=== PATIENT | male | born 1975 | race Caucasian/White ===

== ENCOUNTER 2018-06-13 09:46 | Inpatient (IN) | payer BC ==
[~2018-06-13] VITALS: Ht 193 cm; Wt 100.3 kg
--- NOTE | ~2018-06-13 | EKG ---
[place], [place] ELECTROCARDIOGRAM REPORT NAME: BEL FERREIRA UNIT #: [id number] ROOM: 403 DOCTOR: CRISTOFER DRAFT REPORT BIRTHDATE: [birth year] [facility] Test Date: 2018-06-14 Test Time: 10:01:02 Pat Name: BEL FERREIRA Department: Room: 403 Gender: M Assistant Production Manager: : [id number] Requested By: JOSH EDMOND Order Number: [id number] Reading MD: Jae Roy MD Measurements Intervals [place] Rate: 77 P: 20 WV: 146 QRS: 58 QRSD: 89 T: 28 QT: 363 QTc: 411 Interpretive Statements Sinus rhythm Poor precordial R-wave progression Cannot rule out anteroseptal infarct, old Baseline wander in lead(s) I,II,aVR Electronically Signed On 06-14-2018 21:37:39 PDT by Jae Roy MD CM:EKGRPT:ELECTROCARDIOGRAM REPORT 1001 JOSH CERVANTES DRAFT REPORT JOSH EDMOND DO
[~2018-06-13 09:46] MED LIST: HYDROCODONE BIT1 T11 PO; TOBRADEX 0.1%-0.5 ML OPH
[2018-06-13 10:03] LABS: BASO % 0.4 % (0.0-1.0); EOS # 0.2 10*3/uL (0.0-0.4); EOS % 2.4 % (1.0-4.0); HEMATOCRIT 45.4 % (42.0-52.0); HEMOGLOBIN 15.9 g/dl (14.0-18.0); LYMPH # 2.1 10*3/uL (1.3-4.4); LYMPH % 22.2 % (27.0-41.0); MEAN CORPUSCULAR HGB 31.2 pg (27.0-31.0); MEAN PLATELET VOLUME 10.3 fl (9.6-12.3); MONO # 0.8 10*3/uL (0.1-1.0); MONO % 8.2 % (3.0-9.0); NEUT # 6.1 10*3/uL (2.3-7.9); NEUT % 66.5 % (47.0-73.0); PLATELET COUNT AUTOMATED 176 10*3/uL (130-400); RED CELL DISTRI WIDTH 13.2 % (0-14.5); WHITE BLOOD COUNT 9.2 10*3/uL (4.8-10.8)
[2018-06-13 10:17] LABS: ALKALINE PHOSPHATASE 86 U/L (45-117); BUN 18 mg/dl (7-24); CHLORIDE 105 mmol/L (98-107); CREATININE 0.96 mg/dL (0.70-1.30); LIPASE 104 U/L (73-393); POTASSIUM 4.3 mmol/L (3.5-5.1); SGOT/AST 36 IU/L (3-35); SGPT/ALT 88 U/L (12-78); SODIUM 141 mmol/L (136-145); TOTAL PROTEIN 7.5 gm/dL (6.4-8.2)
[2018-06-13 10:23] VITALS: BP 134/86
[2018-06-13 11:24] VITALS: BP 134/841
[2018-06-13 11:35] LABS: BILIRUBIN NEGATIVE (NEGATIVE); BLOOD NEGATIVE (NEGATIVE); CLARITY CLEAR (CLEAR); COLOR YELLOW (YELLOW); GLUCOSE NEGATIVE (NEGATIVE); KETONE NEGATIVE (NEGATIVE); LEUKO ESTERASE NEGATIVE (NEGATIVE); NITRITE NEGATIVE (NEGATIVE); PH 5.5 (5.0-9.0); SPECIFIC GRAVITY >= 1.030 (1.005-1.030); UROBILINOGEN 0.2 E.U./dl (0.2-1.0)
[2018-06-13 11:47] LABS: MUCOUS TRACE
[2018-06-13 11:58] VITALS: BP 158/89
[2018-06-13 13:15] VITALS: BP 134/84
[2018-06-13 16:00] VITALS: BP 159/98
[2018-06-13 17:16] LABS: URINE AMPHETAMINES < 1000 (1000ng/ml); URINE BARBITURATES < 200 (200ng/ml); URINE BENZODIAZEPINES > 200 (200ng/ml); URINE CANNABINOIDS (THC) < 50 (50ng/ml); URINE COCAINE > 300 (300ng/ml); URINE METHADONE < 300 (300ng/ml); URINE OPIATES > 300 (300ng/ml)
[2018-06-13 17:18] LABS: URINE PHENCYCLIDINE < 25 (25ng/ml)
[2018-06-13] MEDS ORDERED: BUPRENORPHINE HY8 MG SL (18:03)
[2018-06-13 20:00] VITALS: BP 146/92
[2018-06-14] VITALS (10 sets, daily range): BP systolic 141–182; BP diastolic 79–105
[2018-06-14 05:50] LABS: HEMATOCRIT 47.1 % (42.0-52.0); MEAN CELL VOLUME 91.1 fl (80.0-94.0); MEAN CORPUSCULAR HGB 30.9 pg (27.0-31.0); MEAN PLATELET VOLUME 11.1 fl (9.6-12.3); PLATELET COUNT AUTOMATED 174 10*3/uL (130-400); RED BLOOD COUNT 5.17 10*6/uL (4.50-5.90); RED CELL DISTRI WIDTH 13.4 % (0-14.5); WHITE BLOOD COUNT 14.7 10*3/uL (4.8-10.8)
[2018-06-14 06:06] LABS: ALBUMIN 3.2 gm/dl (3.1-4.5); BUN 15 mg/dl (7-24); CHLORIDE 106 mmol/L (98-107); CHOLESTEROL 135 mg/dL (<200); CREATININE 0.95 mg/dL (0.70-1.30); PHOSPHOROUS 2.8 mg/dL (2.5-4.9); POTASSIUM 4.1 mmol/L (3.5-5.1); SGOT/AST 229 IU/L (3-35); SGPT/ALT 195 U/L (12-78); SODIUM 140 mmol/L (136-145); TRIGLYCERIDES 64 mg/dl (<150); VLDL CHOLESTEROL 13 mg/dL (6-40)
[2018-06-14 06:09] LABS: ALKALINE PHOSPHATASE 126 U/L (45-117); HDL CHOLESTEROL 53 mg/dl (40-60); LDL CHOLESTEROL 69 mg/dL (9-159); TOTAL PROTEIN 6.1 gm/dL (6.4-8.2)
[2018-06-14 06:53] LABS: PLATELET SUFFICIENCY NORMAL (NORMAL); TOTAL CELLS COUNTED 100 #CELLS
[2018-06-15] VITALS: BP 126/76
[2018-06-15 06:23] LABS: BASO % 0.1 % (0.0-1.0); EOS % 0.2 % (1.0-4.0); LYMPH # 0.9 10*3/uL (1.3-4.4); LYMPH % 7.5 % (27.0-41.0); MEAN CELL VOLUME 91.4 fl (80.0-94.0); MEAN CORPUSCULAR HGB 31.3 pg (27.0-31.0); MEAN CORPUSCULAR HGB CONC 34.2 g/dl (33.0-37.0); MEAN PLATELET VOLUME 10.7 fl (9.6-12.3); MONO # 1.1 10*3/uL (0.1-1.0); MONO % 9.1 % (3.0-9.0); NEUT # 10.1 10*3/uL (2.3-7.9); NEUT % 82.4 % (47.0-73.0); PLATELET COUNT AUTOMATED 141 10*3/uL (130-400); RED BLOOD COUNT 4.19 10*6/uL (4.50-5.90); RED CELL DISTRI WIDTH 13.5 % (0-14.5); WHITE BLOOD COUNT 12.2 10*3/uL (4.8-10.8)
[2018-06-15 06:27] LABS: HEMATOCRIT 38.3 % (42.0-52.0); HEMOGLOBIN 13.1 g/dl (14.0-18.0)
[2018-06-15 07:05] LABS: ALBUMIN 2.6 gm/dl (3.1-4.5); BUN 12 mg/dl (7-24); CHLORIDE 107 mmol/L (98-107); CREATININE 0.84 mg/dL (0.70-1.30); PHOSPHOROUS 1.6 mg/dL (2.5-4.9); POTASSIUM 3.8 mmol/L (3.5-5.1); SGOT/AST 106 IU/L (3-35); SGPT/ALT 202 U/L (12-78); SODIUM 140 mmol/L (136-145)
[2018-06-15 07:06] LABS: ALKALINE PHOSPHATASE 109 U/L (45-117); TOTAL PROTEIN 5.5 gm/dL (6.4-8.2)
[2018-06-15 08:40] VITALS: BP 138/74
[2018-06-15 12:00] VITALS: BP 134/76
[2018-06-15 16:00] VITALS: BP 121/72
[2018-06-15 20:00] VITALS: BP 127/73
[2018-06-16] VITALS: BP 128/77
[2018-06-16 07:30] LABS: CHLORIDE 107 mmol/L (98-107); POTASSIUM 3.3 mmol/L (3.5-5.1); SODIUM 139 mmol/L (136-145)
[2018-06-16 07:44] LABS: ALBUMIN 2.5 gm/dl (3.1-4.5); ALKALINE PHOSPHATASE 89 U/L (45-117); BUN 10 mg/dl (7-24); CREATININE 0.68 mg/dL (0.70-1.30); PHOSPHOROUS 1.4 mg/dL (2.5-4.9); SGOT/AST 75 IU/L (3-35); SGPT/ALT 177 U/L (12-78); TOTAL PROTEIN 5.7 gm/dL (6.4-8.2)
[2018-06-16 08:13] VITALS: BP 120/80
[2018-06-16] MEDS ORDERED: IBU800 MG PO (11:59)
[2018-06-16 12:00] VITALS: BP 120/72
== END 2018-06-16 14:05 | disposition home or self-care (01) | DRG 419 ==
LOC: ED 09:46 → ICCU 11:52 → EDHOLD 11:52 → 4E 12:10 → ICCU 19:10 → 4E 06-14 15:22
PROVIDERS: Family Medicine; Internal Medicine; Internal Medicine Endocrinology, Diabetes & Metabolism; Nurse Practitioner Family
PROC: 0FT44ZZ Resection of Gallbladder, Percutaneous Endoscopic Approach (ICD-10-PCS; principal; 2018-06-14)
DX: K80.00 Calculus of gallbladder with acute cholecystitis without obstruction (principal); R16.0 Hepatomegaly, not elsewhere classified; K76.0 Fatty (change of) liver, not elsewhere classified; R73.9 Hyperglycemia, unspecified; D72.810 Lymphocytopenia; F17.210 Nicotine dependence, cigarettes, uncomplicated; Z71.6 Tobacco abuse counseling